=== PATIENT | female | born 1965 | race Caucasian/White ===

== ENCOUNTER 2024-06-02 07:04 | Emergency (ER) | payer OTHER, MEDICAID ==
[~2024-06-02] VITALS: Ht 167.6 cm; Wt 123.0 kg
[2024-06-02 07:06] VITALS: O2SAT 99
[2024-06-02] MEDS: METHOCARBAMOL 500MG TABLET PO ONE (07:37)
[2024-06-02] MEDS: IBUPROFEN 600MG TABLET PO ONE (07:39)
[2024-06-02] MEDS ORDERED: METH-653 MT (08:08)
[2024-06-02] MEDS ORDERED: IBUP-2029 MT (08:08)
[2024-06-02 08:35] VITALS: BP 130/72; PULSE 67; RESP 18; TEMP 36.7; O2SAT 99
== END 2024-06-02 08:35 | disposition home or self-care (01) ==
LOC: ER 07:04
DX: S43.402A Unspecified sprain of left shoulder joint, initial encounter (principal); S63.92XA Sprain of unspecified part of left wrist and hand, initial encounter; E11.9 Type 2 diabetes mellitus without complications; V43.52XA Car driver injured in collision with other type car in traffic accident, initial encounter; Y93.89 Activity, other specified; Y92.89 Other specified places as the place of occurrence of the external cause; Y99.8 Other external cause status
CPT/HCPCS: 73030; 73130; 99284